=== PATIENT | male | born 1970 | race Caucasian/White ===

== ENCOUNTER 2018-06-10 10:00 | Emergency (ER) | payer OTHER, MEDICAID ==
[~2018-06-10] VITALS: Ht 167.6 cm; Wt 90.7 kg
[2018-06-10 10:05] VITALS: BP_SYST 143
[2018-06-10] MEDS ORDERED: NACL 0.9% 1,000 ML IV ONE (11:02)
[2018-06-10] MEDS ORDERED: MORPHINE 4 MG/ML INJ. SYRINGE IVP ONE (11:15)
[2018-06-10] MEDS ORDERED: ONDANSETRON HCL 4 MG/2 ML VIAL IVP ONE (11:15)
[2018-06-10] MEDS ORDERED: DIPHENHYDRAMINE INJ 50 MG/ML VIAL IVP ONE (11:15)
[2018-06-10 11:22] LABS: BASOPHILS # (AUTO) 0.1 K/uL (0.0-0.2); BASOPHILS % (AUTO) 0.9 % (0.0-2.0); EOSINOPHILS # (AUTO) 0.1 K/uL (0.0-0.4); EOSINOPHILS % (AUTO) 0.9 % (0.0-4.0); HEMATOCRIT 44.5 % (36-54); HEMOGLOBIN 14.6 g/dL (14.0-18.0); LYMPHOCYTES # (AUTO) 0.9 K/uL (1.0-5.5); MEAN CORPUSCULAR HEMOGLOBIN 29 pg (27-31); MEAN CORPUSCULAR HGB CONC 33 % (32-36); MEAN CORPUSCULAR VOLUME 87 fL (79.0-98.0); MONOCYTES % (AUTO) 9.2 % (1.7-9.3); NEUTROPHILS # (AUTO) 8.9 K/uL (1.8-7.7); PLATELET COUNT (AUTO) 163 K/uL (130-430); RED CELL DISTRIBUTION WIDTH 14.7 % (9.0-15.0)
[2018-06-10 11:38] LABS: CALCIUM 9.4 mg/dL (8.4-11.0); CREATININE 1.29 mg/dL (0.55-1.30); INR 1.1 (0.80-1.20); POTASSIUM 4.4 mmol/L (3.5-5.1)
[2018-06-10 11:42] LABS: ALBUMIN 3.6 g/dL (3.4-4.8); TOTAL BILIRUBIN 0.9 mg/dL (0.0-1.0)
[2018-06-10 12:50] VITALS: BP_SYST 143
== END 2018-06-10 12:50 | disposition home or self-care (01) ==
LOC: SED 10:00
DX: G44.209 Tension-type headache, unspecified, not intractable (principal); R03.0 Elevated blood-pressure reading, without diagnosis of hypertension
CPT/HCPCS: 36415; 70450; 80053; 83690; 85025; 85610; 96374; 96375; 99285; J1200; J2270; J2405; J7030

== ENCOUNTER 2018-12-04 15:58 | Emergency (ER) | payer OTHER, MEDICAID ==
[~2018-12-04] VITALS: Ht 167.6 cm; Wt 91.6 kg
[2018-12-04 16:13] VITALS: BP_SYST 143
[2018-12-04 17:16] LABS: BASOPHILS # (AUTO) 0.1 K/uL (0.0-0.2); BASOPHILS % (AUTO) 0.8 % (0.0-2.0); EOSINOPHILS # (AUTO) 0.2 K/uL (0.0-0.4); EOSINOPHILS % (AUTO) 1.9 % (0.0-4.0); HEMATOCRIT 38.5 % (36-54); HEMOGLOBIN 12.3 g/dL (14.0-18.0); LYMPHOCYTES # (AUTO) 1.2 K/uL (1.0-5.5); LYMPHOCYTES % (AUTO) 11.8 % (20.5-51.5); MEAN CORPUSCULAR HEMOGLOBIN 24 pg (27-31); MEAN CORPUSCULAR HGB CONC 32 % (32-36); MEAN CORPUSCULAR VOLUME 76 fL (79.0-98.0); MONOCYTES # (AUTO) 0.8 K/uL (0.0-1.0); MONOCYTES % (AUTO) 7.8 % (1.7-9.3); NEUTROPHILS # (AUTO) 7.9 K/uL (1.8-7.7); NEUTROPHILS % (AUTO) 77.7 % (40.0-70.0); PLATELET COUNT (AUTO) 168 K/uL (130-430); RED BLOOD CELL COUNT(AUTO) 5.07 MIL/uL (4.2-6.2); RED CELL DISTRIBUTION WIDTH 15.9 % (9.0-15.0); WHITE BLOOD COUNT (AUTO) 10.2 K/uL (4.8-10.8)
[2018-12-04 17:28] LABS: CALCIUM 9.4 mg/dL (8.4-11.0); CREATININE 1.39 mg/dL (0.55-1.30); POTASSIUM 4.4 mmol/L (3.5-5.1)
[2018-12-04 17:31] LABS: PROTHROMBIN TIME 10.5 SECS (9.5-12.5)
[2018-12-04 17:34] LABS: ALBUMIN 3.3 g/dL (3.4-4.8); TOTAL BILIRUBIN 0.5 mg/dL (0.0-1.0)
[2018-12-04] MEDS ORDERED: NACL 0.9% 1,000 ML IV ONE (18:15)
[2018-12-04] MEDS ORDERED: MORPHINE 4 MG/ML INJ. SYRINGE IVP ONE (18:15)
[2018-12-04 18:21] LABS: BILIRUBIN,URINE NEGATIVE (NEGATIVE); BLOOD, URINE 2+ (NEGATIVE); CLARITY/URINE CLEAR (CLEAR); COLOR,URINE YELLOW (YELLOW); GLUCOSE,URINE NEGATIVE (NEGATIVE); KETONES,URINE NEGATIVE (NEGATIVE); LEUKOCYTE ESTERASE ,URINE NEGATIVE (NEGATIVE); NITRITE, URINE NEGATIVE (NEGATIVE); PROTEIN URINE NEGATIVE (NEGATIVE); UROBILINOGEN,URINE 0.2 (0.2-1.0)
[2018-12-04] MEDS ORDERED: MORPHINE 4 MG/ML INJ. SYRINGE IM ONE (18:30)
[2018-12-04 18:37] LABS: WBC,URINE 0-3 /HPF (0-3)
[2018-12-04 18:38] LABS: BACTERIA,URINE FEW /HPF (None Seen); MUCUS,URINE 1+ /LPF (None Seen)
[2018-12-04 18:50] VITALS: BP_SYST 146
== END 2018-12-04 18:50 | disposition left against medical advice (07) ==
LOC: SED 15:58
DX: R16.1 Splenomegaly, not elsewhere classified (principal); R19.00 Intra-abdominal and pelvic swelling, mass and lump, unspecified site; Z85.528 Personal history of other malignant neoplasm of kidney
CPT/HCPCS: 36415; 71045; 74176; 80053; 81000; 83605; 84484; 85025; 85610; 85730; 87040; 87086; 93005; 96372; 99284; J2270; J7030

== ENCOUNTER 2018-12-05 13:53 | Emergency (ER) | payer OTHER, MEDICAID ==
[~2018-12-05] VITALS: Ht 167.6 cm; Wt 91.6 kg
[2018-12-05 13:57] VITALS: BP_SYST 131
--- NOTE | 2018-12-05 14:01 | NUR ---
Patient to ER bed 6 to gown for evaluation. Side rails up. Report given to Spencer SHARMA.
--- NOTE | 2018-12-05 14:02 | NUR ---
Pt is here for c/o mid abd pain 5-01/06, denied any nausea, vomiting, or diarrhea. States he has been comstipiated for 3 days. Pt states he has hx of stage 4 kidney cancer, was here yesterday, had orders to be admitted, but left due to a that he has to attend to today. Pt is alert and orientedx4, lung sounds clear, VSS. Pt is placed on color television console monitor and continuous pulse ox. Will continue to monitor pt.
--- NOTE | 2018-12-05 14:03 | NUR ---
Dr. Mas at bedside to assess pt.
[2018-12-05] MEDS ORDERED: NACL 0.9% 1,000 ML IV ONE (15:00)
[2018-12-05] MEDS ORDERED: MORPHINE 4 MG/ML INJ. SYRINGE IVP ONE (15:00)
[2018-12-05 15:58] LABS: TOTAL IRON BIND. CAPACITY 328 ug/dL (250-450)
[2018-12-05 16:35] VITALS: BP_SYST 135
--- NOTE | 2018-12-05 16:35 | NUR ---
Patient does not wish to proceed with medical care recommended by Dr. aMs. Patient given information related to possible complications, up to and including , which could occur as a result of leaving hospital at this time. Patient verbalizes understanding of risks involved leaving against medical advice. Patient has signed AMA form. Addendum: 12/05/18 at 1644 by GABRIEL Note done by EDITH Shelton.
== END 2018-12-05 16:35 | disposition left against medical advice (07) ==
LOC: SED 13:53
DX: R16.1 Splenomegaly, not elsewhere classified (principal); Z85.528 Personal history of other malignant neoplasm of kidney
CPT/HCPCS: 36415; 83540; 83550; 96374; 99283; J2270; J7030

== ENCOUNTER 2019-09-18 14:22 | Emergency (ER) | payer OTHER, MEDICAID ==
[~2019-09-18] VITALS: Ht 167.6 cm; Wt 67.1 kg
[2019-09-18 14:26] VITALS: BP_SYST 118
--- NOTE | 2019-09-18 14:33 | NUR ---
Patient to ER bed 7 to gown for evaluation. Side rails up.
--- NOTE | 2019-09-18 14:40 | NUR ---
PT CAME TO ER FOR ABD PAIN NAUSEA AND VOMITING. HE IS RESTING IN [facility] AWAITING MD ON [facility] DIRECTOR OF ADMISSIONS.
[2019-09-18] MEDS ORDERED: ONDANSETRON HCL 4 MG/2 ML VIAL IVP ONE (14:45)
[2019-09-18] MEDS ORDERED: NACL 0.9% 1,000 ML IV ONE (14:45)
[2019-09-18] MEDS ORDERED: ACETAMINOPHEN WITH CODEINE 12.5 ML UDC PO ONE (14:45)
--- NOTE | 2019-09-18 14:45 | NUR ---
ER at bedside examining patient.
[2019-09-18 15:22] LABS: BASOPHILS # (AUTO) 0.1 K/uL (0.0-0.2); BASOPHILS % (AUTO) 1.1 % (0.0-2.0); EOSINOPHILS # (AUTO) 0.1 K/uL (0.0-0.4); EOSINOPHILS % (AUTO) 1.1 % (0.0-4.0); HEMATOCRIT 38.3 % (36-54); HEMOGLOBIN 12.1 g/dL (14.0-18.0); LYMPHOCYTES # (AUTO) 0.2 K/uL (1.0-5.5); LYMPHOCYTES % (AUTO) 3.1 % (20.5-51.5); MEAN CORPUSCULAR HEMOGLOBIN 24 pg (27-31); MEAN CORPUSCULAR HGB CONC 32 % (32-36); MEAN CORPUSCULAR VOLUME 76 fL (79.0-98.0); MONOCYTES # (AUTO) 0.7 K/uL (0.0-1.0); MONOCYTES % (AUTO) 12.8 % (1.7-9.3); NEUTROPHILS # (AUTO) 4.7 K/uL (1.8-7.7); NEUTROPHILS % (AUTO) 81.9 % (40.0-70.0); PLATELET COUNT (AUTO) 132 K/uL (130-430); RED BLOOD CELL COUNT(AUTO) 5.04 MIL/uL (4.2-6.2); RED CELL DISTRIBUTION WIDTH 20.9 % (9.0-15.0); WHITE BLOOD COUNT (AUTO) 5.8 K/uL (4.8-10.8)
[2019-09-18 15:27] LABS: CALCIUM 9.2 mg/dL (8.4-11.0); CREATININE 1.09 mg/dL (0.55-1.30); POTASSIUM 3.6 mmol/L (3.5-5.1)
--- NOTE | 2019-09-18 15:30 | NUR ---
PT RESTING IN BED NO COMPLAINTS AT THIS TIME
[2019-09-18 15:35] LABS: ALBUMIN 3.1 g/dL (3.4-4.8)
[2019-09-18 16:36] VITALS: BP_SYST 118
--- NOTE | 2019-09-18 16:45 | NUR ---
DPatient given written and verbal discharge instructions and verbalizes understanding. ER MD discussed with patient the results and treatment provided. Patient in stable condition. ID arm band removed. IV catheter removed intact and dressing applied, no active bleeding. Rx of ZOFRAN given. Patient educated on pain management and to follow up with PMD. Pain Scale 3/10. Opportunity for questions provided and answered. Medication side effect fact sheet provided.
== END 2019-09-18 16:45 | disposition home or self-care (01) ==
LOC: SED 14:22
DX: A08.4 Viral intestinal infection, unspecified (principal); R11.2 Nausea with vomiting, unspecified; E78.5 Hyperlipidemia, unspecified; Z85.038 Personal history of other malignant neoplasm of large intestine; Z85.118 Personal history of other malignant neoplasm of bronchus and lung
CPT/HCPCS: 36415; 80053; 85025; 96361; 96374; 99283; J2405; J7030